=== PATIENT | male | born 1960 | race Caucasian/White ===

== ENCOUNTER 2017-08-07 22:36 | Emergency (ER) | payer MEDICARE, MEDICAID ==
[2017-08-08] MEDS ORDERED: Tetan/Diph/Pertus SYR(Tdap)* 0.5 ML SYR(BOOSTRIX) use SYR IM ONE (02:06)
[2017-08-08] MEDS ORDERED: Lidocaine 1%* 5 ML VIAL ONE (02:38)
[2017-08-08 03:03] VITALS: BP 142/88
--- NOTE | 2017-08-08 07:50 | RAD ---
HISTORY: Fall, left hand injury COMPARISONS: None VIEWS: 4, Frontal, lateral, and oblique views of the left hand FINDINGS: BONE DENSITY: Normal. BONES: There is no displaced fracture. 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 ALIGNMENT: There is no dislocation. SOFT TISSUES: There is soft tissue irregularity of the distal fourth digit consistent with the history of laceration. OTHER FINDINGS: None. IMPRESSION: NO ACUTE OSSEOUS INJURY. IF SYMPTOMS PERSIST, RECOMMEND REPEAT IMAGING.
--- NOTE | 2017-08-20 01:39 | ED ---
Eulalio Molina Angela, scribed for Jaquan Hernandez MD on 08/08/17 at 0213 . Laceration/Wound HPI - HPI Summary HPI Summary: This pt is a 57 y/o male presenting to [facility] [place]/o left fourth finger laceration s /p fall today. Pt reports he was coughing when he passed out and fell. Pt states he fell on the garage floor with gravel and sustained a laceration. Pt denies head injury, headache, or any other injuries. Pt notes he has had prior episodes of cough syncope. PMHx includes emphysema. - History of Current Complaint Stated Complaint: LT FINGER LAC Time Seen by Provider: 08/08/17 02:04 Hx Obtained From: Patient Onset/Duration: Lasting Hours, Still Present Timing: Constant Current Severity: Mild Pain Intensity: 1 Pain Scale Used: 0-10 Numeric Associated Signs & Symptoms: Negative - Allergy/Home Medications Allergies/Adverse Reactions: Allergies Allergy/AdvReac Type Severity Reaction Status Date / Time No Known Allergies Allergy Verified 02/11/13 17:17 PMH/Surg Hx/FS Hx/Imm Hx Endocrine/Hematology History: Denies: Hx Diabetes Cardiovascular History: Reports: Hx Hypertension Respiratory History: Reports: Hx Chronic Obstructive Pulmonary Disease (COPD) - emphysema Neurological History: Reports: Other Neuro Impairments/Disorders - cough syncope - Immunization History Date of Tetanus Vaccine: unk Infectious Disease History: No Infectious Disease History: Denies: Traveled Outside the [place] in Last 30 Days - Family History Known Family History: Positive: Unknown - pt is adopted. - Social History Alcohol Use: Weekly Substance Use Type: Reports: None Smoking Status (MU): Unknown if Ever Smoked Review of Systems Negative: Fever, Chills Positive: Cough Skin: Other - laceration to left fourth finger Positive: Syncope - passing out All Other Systems Reviewed And Are Negative: Yes Physical Exam - Summary Physical Exam Summary: Appearance: Well-appearing, Well-nourished Skin: Warm, Dry, No rash Eyes: Normal, PERRL, EOMI, sclera anicteric ENT: Normal Neck: Supple, nontender Respiratory: Clear to auscultation Cardiovascular: S1, S2, no murmur, no rub, no gallop Abdomen: Soft, nontender, no organomegaly Bowel sounds: Present Musculoskeletal: Normal, Strength/ROM Intact, no edema, pulses symmetrical. LUE : laceration on left fourth finger distal phalanx. Full extension and flexion of the finger. Finger is well perfused and sensation is normal. Neurological: Normal, A&Ox3, cranial nerves II-XII wnl, follows commands, gait not tested, sensation intact to pin and light touch Psychiatric: affect normal, behavior appropriate, dressed appropriately, judgment intact Triage Information Reviewed: Yes Vital Signs On Initial Exam: Initial Vitals Temp Pulse Resp BP Pulse Ox 98.2 F 92 16 131/88 100 08/07/17 22:38 08/07/17 22:38 08/07/17 22:38 08/07/17 22:38 08/07/17 22:38 Vital Signs Reviewed: Yes Procedures - Laceration/Wound Repair 1 Location: upper extremity - left fourth finger Description: Linear Anesthesia: 1.0%, Lido Laceration/Wound Explored: clean Suture Type: Other - surgipro 4-0 Number of Sutures: 5 Diagnostics - Vital Signs Vital Signs Temp Pulse Resp BP Pulse Ox 08/08/17 00:46 98.6 F 90 16 142/86 98 08/07/17 22:38 98.2 F 92 16 131/88 100 - Laboratory Lab Statement: Any lab studies that have been ordered have been reviewed, and results considered in the medical decision making process. - Radiology Left hand XR Xray Interpretation: No Acute Changes - Negative for fractures Radiology Interpretation Completed By: ED Physician Laceration Repair Course/Dx - Course Assessment/Plan: Pt is a 57 y/o male who presents with left fourth finger laceration s/p cough syncope. XR of finger is negative for fractures. Pt declines an EKG. I placed 5 sutures with 4-0 surgipro. Pt tolerated well. He will be discharged home. - Clinical Impression Provider Diagnoses: Cough syncope, Laceration Discharge - Discharge Plan Condition: Good Disposition: HOME Patient Education Materials: Laceration (ED) Referrals: Jose Cerda MD [Primary Care Provider] - The documentation as recorded by the Eulalio welch Angela accurately reflects the service I personally performed and the decisions made by me, Jaquan Hernandez MD.
== END 2017-08-08 03:03 | disposition home or self-care (01) ==
LOC: ED 22:36
DX: S61.215A Laceration without foreign body of left ring finger without damage to nail, initial encounter (principal); R05 Cough; R55 Syncope and collapse; W19.XXXA Unspecified fall, initial encounter; Y93.9 Activity, unspecified; Y92.9 Unspecified place or not applicable
CPT/HCPCS: 90471; 90715; 99282

== ENCOUNTER 2019-12-04 18:27 | Emergency (ER) | payer MEDICARE, MEDICAID ==
[2019-12-04] MEDS ORDERED: NS 0.9% 1000 ML** 1,000 ML IV ONE ×2 (18:29→18:55)
--- NOTE | 2019-12-04 18:37 | ED ---
Neurological HPI - HPI Summary HPI Summary: 59 year old M with hx HTN and hx alcohol use arriving via [facility] to [facility] from daughter's house presents with aphasia and right sided weakness. Last known well 1734. Son states patient was sitting on the couch when son noticed that patient had difficulty talking and right sided facial droop. Son called EMS. EMS states patient was able to walk down stairs before they showed up. Patient regained some speech ability and strength but still aphasic and weak on his right side. Patient normally speaks with some slur per EMS. Medications reviewed. Not on anticoagulants. EMS states patient is noncompliant with his medications. Malcolm Tovar called in the field by EMS 1817. Patient arrival to ED 1826. Initial provider encounter 1826. Patient to CT 1828. - History of Current Complaint Stated Complaint: POSSIBLE CODE CORREIA Time Seen by Provider: 12/04/19 18:29 Hx Obtained From: Family/Manufacturing Inspector - son, EMS Onset/Duration: Started hours ago - 1734, Still Present Timing: Constant Aggravating: Nothing Alleviating: Nothing - Allergy/Home Medications Allergies/Adverse Reactions: Allergies Allergy/AdvReac Type Severity Reaction Status Date / Time No Known Allergies Allergy Verified 02/11/13 17:17 Home Medications: Home Medications Albuterol HFA INHALER* [Proair Hfa Inhaler*] PRN 02/11/13 [History] Ipratropium HFA INHALER(NF) [Atrovent Hfa Inhaler*] PRN 02/11/13 [History Confirmed 02/11/13] PMH/Surg Hx/FS Hx/Imm Hx Endocrine/Hematology History: Denies: Hx Diabetes Cardiovascular History: Reports: Hx Hypertension Respiratory History: Reports: Hx Chronic Obstructive Pulmonary Disease (COPD) - emphysema Neurological History: Reports: Other Neuro Impairments/Disorders - cough syncope - Surgical History Surgical History: None - Immunization History Date of Tetanus Vaccine: unk - Family History Known Family History: Positive: Unknown - patient is adopted - Social History Alcohol Use: Weekly Substance Use Type: Reports: None Smoking Status (MU): Unknown if Ever Smoked Review of Systems Positive: Other - hypertension Neurological/Mental Status: Other - aphasia, right sided facial droop Positive: Weakness - R side All Other Systems Reviewed And Are Negative: Yes Physical Exam - Summary Physical Exam Summary: Constitutional: Well-developed, Well-nourished, Alert. (-) Distressed Skin: Warm, Dry HENT: Normocephalic; Atraumatic Eyes: Conjunctiva normal Neck: Musculoskeletal ROM normal neck. (-) JVD, (-) Stridor, (-) Tracheal deviation Cardio: Rhythm regular, rate normal, Heart sounds normal; Intact distal pulses; The pedal pulses are 2+ and symmetric. Radial pulses are 2+ and symmetric. (-) Murmur Pulmonary/Chest wall: Effort normal. (-) Respiratory distress, (-) Wheezes, (-) Rales Abd: Soft. (-) Tenderness, (-) Distension, (-) Guarding, (-) Rebound Musculoskeletal: (-) Edema Lymph: (-) Cervical adenopathy Neuro: Patient is aphasic. He is following commands. He is moving all extremities. Psych: Mood and affect Normal Triage Information Reviewed: Yes Vital Signs Reviewed: Yes - [place] Coma Scale Best Eye Response: 4 - Spontaneous Best Motor Response: 6 - Obeys Commands Best Verbal Response: 2 - Incomprehensible Words Coma Scale Total: 12 Procedures - Sedation Patient Received Moderate/Deep Sedation with Procedure: No Diagnostics - Laboratory Result Diagrams: 12/04/19 18:41 12/04/19 18:41 Lab Statement: Any lab studies that have been ordered have been reviewed, and results considered in the medical decision making process. - Radiology CXR Radiology Interpretation Completed By: ED Physician - ? mild pulmonary edema. otherwise NAD. PENDING OFFICIAL REPORT. - CT BRAIN CT Interpretation Completed By: Radiologist - IMPRESSION: 1. Significant limitation by motion artifact. This could obscure early evidence for infarction or small bleed. No definite intracranial hemorrhage, mass, or mass effect. However if symptoms persist repeat or close follow-up study would be recommended. 2. There is minimal low attenuation change in the white matter most consistent with chronic age related small vessel ischemic change. No acute territorial infarction is seen. These can be initially occult on head CT. 3. ASPECTS score 10, given the limitations. ED physician has reviewed this imaging report. - EKG 1842 Cardiac Rate: NL - 74 BPM EKG Rhythm: Sinus Rhythm Summary of EKG Findings: No ischemic changes. ED physician has reviewed and interpreted this EKG NIH Scale - NIH Scale Level of Consciousness: Alert/Keenly Responsive Ask Patient the Month and His/Her Age: Neither Correct/Aphasic Ask Pt to Open/Close Eyes and Night Clerk Auditor/Release Non-Paretic Hand: Both Correctly Best Gaze (Only Horizontal Eye Movement): Normal Visual Field Testing: No Visual Loss Facial Paresis-Pt to Smile & Close Eyes or Grimace Symmetry: Minor Paralysis Motor Function - Right Arm: Drifts LT 10 seconds Motor Function - Left Arm: No Drift-Holds 10 Seconds Motor Function - Right Leg: Drifts LT 10 seconds Motor Function - Left Leg: No Drift-Holds 10 Seconds Limb Ataxia-Must be out of Proportion to Weakness Present: Absent Sensory (Use Pinprick to Test Arms/Legs/Trunk/Face): Normal Best Language (Describe Picture, Name Items): Severe Aphasia Dysarthria (Read Several Words): Unintelligible or Mute Extinction and Inattention: No Abnormality Total Score: 9 Re-Evaluation - Re-Evaluation First Eval Re-Evaluation Time: 18:40 Comment: report given to [facility] Second Eval Re-Evaluation Time: 18:46 Comment: gave report to Dr. Foster, [place] neurologist Third Eval Re-Evaluation Time: 18:53 Comment: Dr. Olson called to report negative CT Brain findings Fourth Eval Re-Evaluation Time: 18:54 Comment: [facility] called to report negative CT Brain findings Fifth Eval Re-Evaluation Time: 18:56 Comment: called Dr. Foster and updated him on additional history and course of treatment Sixth + Eval Re-Evaluation Time: 19:24 Comment: aware of troponin 0.03 Seventh Eval Re-Evaluation Time: 19:40 Comment: patient accepted to Dr. Foster per Dr. Rievrs Course/Dx - Course Course Of Treatment: 59 y/o M with hx HTN and hx alcohol use p/w aphasia and right sided weakness. Last known well 1734. Son noted patient to have difficulty talking and right sided facial droop while patient was sitting on the couch. Medications reviewed. Not on anticoagulants. Patient is noncompliant with his medications. Upon physical exam, patient is aphasic. He is following commands. He is moving all extremities. Bloodwork results with no significant abnormalities except for INR 1.24, sodium 129, chloride 94, troponin 0.03, BNP 117. An EKG shows NSR 74 BPM and no ischemic changes. CXR shows ? mild pulmonary edema, otherwise NAD. BRAIN CT shows Significant limitation by motion artifact. This could obscure early evidence for infarction or small bleed. No definite intracranial hemorrhage, mass, or mass effect. However if symptoms persist repeat or close follow-up study would be recommended. 2. There is minimal low attenuation change in the white matter most consistent with chronic age related small vessel ischemic change. No acute territorial infarction is seen. These can be initially occult on head CT. 3. ASPECTS score 10, given the limitations. Patient is hypertensive. He was started on Cardene trip. Dr. Rivers agreed to consult and see patient in the ED. He recommended TPA. TPA was mixed. Activase ordered and administered at 1915. Dr. Rivers discussed the risks and benefits of TPA with patient and family. Head/Neck CTA obtained. Official read pending at time of patient departure. Dr. Rivers recommends transfer. The patient was accepted to Dr. Foster at [place] per Dr. Rivers at 1940. The patient will be transferred to [place]. - Diagnoses Provider Diagnoses: CVA (cerebral vascular accident), Uncontrolled hypertension, Elevated troponin , Hyponatremia During the Visit The Following Alert/Code Occurred: Code Tovar - 1818 called in the field by EMS - Physician Notifications Discussed Care Of Patient With: Erick Rivers - he agrees to consult and recommends TPA Time Discussed With Above Provider: 18:58 - Critical Care Time Critical Care Time: 75-104 min Discharge ED - Sign-Out/Discharge Documenting (check all that apply): Patient Departure - Discharge Plan Condition: Stable Disposition: TRANS HIGHER LVL OF CARE FAC Referrals: Jose Cerda MD [Primary Care Provider] - - Billing Disposition and Condition Condition: STABLE Disposition: Trans Higher Lvl of Care Fac - Attestation Statements Document Initiated by Scribe: Yes Documenting Scribe: Bobbi Torres Provider For Whom Kaelaibe is Documenting (Include Credential): London Brock DO Scribe Attestation: Bobbi Molina scribed for London Brock DO on 12/04/19 at 1999. Scribe Documentation Reviewed: Yes Provider Attestation: The documentation as recorded by the Bobbi welch accurately reflects the service I personally performed and the decisions made by , London Brock DO Status of Scribe Document: Viewed
[2019-12-04] MEDS ORDERED: niCARdipine 0.1MG/ML IVPREMIX* 20 MG/200 ML BAG IV SCH (19:00)
[2019-12-04] MEDS ORDERED: Alteplase* 100 MG VIAL ONE (19:00)
[2019-12-04] MEDS ORDERED: niCARdipine 0.1MG/ML IVPREMIX* 20 MG/200 ML BAG IV ONE ×2 (19:00→19:02)
[2019-12-04 19:04] LABS: ABS Basophils 0.1 10^3/ul (0-0.2); ABS Lymphocytes 2.4 10^3/ul (1.0-4.8); ABS Monocytes 0.9 10^3/ul (0-0.8); ABS Neutrophils 5.4 10^3/ul (1.5-7.7); Eosinophil % 0.5 %; Hematocrit 44 % (42-52); Hemoglobin 15.2 g/dL (14.0-18.0); Lymphocyte % 27.1 %; Mean Corpuscular HGB Conc 35 g/dL (31-36); Mean Corpuscular Hemoglobin 33 pg (27-31); Mean Corpuscular Volume 95 fL (80-94); Mean Platelet Volume 8.6 fL (7.4-10.4); Platelet Count 279 10^3/uL (150-450); Red Cell Distribution Width 13 % (10-15); White Blood Count 8.8 10^3/uL (3.5-10.8)
[2019-12-04 19:15] LABS: Activated Partial Thrombo Time 37.8 seconds (26.0-38.0); INR 1.24 (0.82-1.09)
[2019-12-04] MEDS ORDERED: ALTEPLASE IV ONE (19:15)
[2019-12-04 19:20] LABS: ALT 15 U/L (7-52); Albumin 3.7 g/dL (3.2-5.2); Albumin/Globulin Ratio 0.9 (1-3); Alkaline Phosphatase 79 U/L (34-104); BUN/Creatinine Ratio 10.5 (8-20); Blood Urea Nitrogen 9 mg/dL (6-24); CO2 Carbon Dioxide 26 mmol/L (22-32); Calcium 9.2 mg/dL (8.6-10.3); Chloride 94 mmol/L (101-111); Cholesterol 150 mg/dL; EGFR African American 110.1 (>60); Globulin 3.9 g/dL (2-4); Glucose 112 mg/dL (70-100); HDL Cholesterol 52.3 mg/dL; LDL Cholesterol 80 mg/dL; Sodium 129 mmol/L (135-145); Total Protein 7.6 g/dL (6.4-8.9); Triglycerides 89 mg/dL
[2019-12-04] MEDS ORDERED: Alteplase* 100 MG VIAL IV ONE (19:20)
[2019-12-04 19:24] LABS: Troponin I 0.03 ng/mL (<0.03)
[2019-12-04 19:52] VITALS: BP 172/82
[2019-12-04 20:01] LABS: AST 21 U/L (13-39); Anion Gap 9 mmol/L (2-11); Potassium 3.9 mmol/L (3.5-5.0)
[2019-12-04] MEDS ORDERED: Midazolam* 1 MG/ML 5 ML VIAL (5 MG) IV SLOW PU ONE (20:11)
--- NOTE | 2019-12-04 22:57 | CONS ---
CONSULTATION REPORT: DATE OF CONSULT: 12/04/19 - EMERGENCY DEPT CONSULTING PROVIDER: Dr. London Brock. REASON FOR CONSULT: Stroke. CHIEF COMPLAINT: Word-finding difficulty and right hemiparesis. HISTORY OF PRESENT ILLNESS: Mr. Terrance Louis is a 59-year-old right-handed man with history of uncontrolled hypertension, poor compliance to medications, dyslipidemia, tobacco use, who presented to [facility] today, on 04/17, due to sudden onset word-finding difficulty and right-sided weakness. The patient was last seen well on 12/04/19 at 1700. He was sitting on the couch at his daughter's house watching television. Suddenly at 1735, on , the patient developed word-finding difficulty. He could not formulate words. He had associated symptoms of inability to move the right side of his body. The family rushed him to the ER for further evaluation. I was involved because I was on my way to see a consultation in room 19, when suddenly I have noticed that the patient in room 14 with profound right hemiparesis, right neglect, aphasia, and pending [facility] consultation. I had offered to consult on the patient immediately to provide him with tPA at a timely manner. Dr. Jun Brock agreed that I would consult on the patient. I was at bedside at 33 minutes from when the patient walked into the door. The Code Justin was activated at 1816 on 12/04/19. I was at bedside at 1849 p.m. TPA decision time at 1855 after I briefly examined the patient, performed NIH Stroke Scale, and reviewed the CT head. The CT head showed no evidence of acute intracranial abnormality. There was hypodensity in the right basal ganglia area, which appeared slightly chronic. There was an area of hyperdensity in the cavernous portion of the internal carotid artery extending into the proximal middle cerebral artery. We delayed IV tPA because the patient's blood pressure was significantly elevated. We started him on nicardipine drip and was able to drop his blood pressure within about 10 to 15 minutes. The patient received IV tPA infusion at 1920. A CTA head and neck was then obtained for which it was not obtained initially and showed severe stenosis of the left MCA with a possible cut off. There is calcification in the left internal carotid artery near the bulb without any clear occlusion there. 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 I discussed the findings with Dr. Foster from the [facility] and have decided to activate the LVO code and bring the air flight team to transfer the patient to the [facility]. Prior to give an IV tPA, I have discussed the risks, benefits, and alternative treatment with the family including the patient's spouse and children, who were at bedside. They all agreed to proceed with IV tPA including the patient's daughter, Sabi Louis. NIH Stroke Scale 12 for severe aphasia, right facial droop, right hemiparesis graded as 1, and one limb ataxia and tactile extinction. PAST MEDICAL HISTORY: Obesity, hypertension, tobacco abuse for over 30 years, 1 pack per day. FAMILY HISTORY: No family history of stroke or seizures. SOCIAL HISTORY: Smoker. The patient also drinks heavily, averaging 3-4 beers a day. REVIEW OF SYSTEMS: Review of systems was unable to be obtained due to the patient's aphasia. PHYSICAL EXAM: Vitals: Temperature of 99.1, heart rate of 99, respiratory rate of 28, oxygen saturation of 94%, blood pressure of 172/82. General: Ill- appearing man, in no acute distress. He is aphasic. Head: Atraumatic, normocephalic without any obvious abnormality. Neck is supple and symmetrical with no carotid bruits. Eyes: Conjunctivae/corneas are clear. Pulmonary: Clear to auscultation bilaterally. Cardiac: Regular rate and rhythm with normal S1, S2. Extremities: Normal range of motion with no cyanosis or edema. Skin: No skin lesions or laceration. Psych: Nonapplicable. Mental Status: Alert, awake, and responds appropriately, but severely aphasic. He comprehends well, but is nearly mute. Speech is slurred. Cranial Nerves: Pupils are equal , round, and reactive to light. Extraocular muscles are intact, but there is forced deviation towards the left side that does overcome towards the right facial droop. Tongue is symmetric and midline. There is no atrophy. Motor Examination: 4/5 weakness on the right upper and lower extremity, 5/5 in the left upper and lower extremity. Normal tone throughout. Sensation is diminished on the right arm and leg. Coordination: Motor dysmetria on the right [id number]. Gait was not assessed. DIAGNOSTIC STUDIES/LAB DATA: WBC of 8.8, hemoglobin of 15.2, hematocrit 44, platelet count of 279. INR 1.24. Sodium of 129, potassium is 3.9, chloride of 94, glucose of 112. BNP of 117. Serum alcohol less than 10. Please note the final CTA results have not been read. ASSESSMENT AND RECOMMENDATIONS: Mr. Terrance Louis is a 59-year-old man, who has history of obesity, uncontrolled hypertension, tobacco abuse, alcohol dependency, who presented to [facility] with right hemiparesis and aphasia. Again, the [facility] was consulted on the case; however , I had incidentally passed by and found that the patient was having right hemiparesis with aphasia and we were waiting for the Telestroke to come on and therefore I was asked by Dr. Brock to evaluate the patient. 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 Inclusion and exclusion to IV tPA was reviewed with the patient's son and daughter at bedside. We found that he had no exclusions to IV alteplase therapy and decided with consent of family to proceed with IV tPA. The risk of hemorrhage which includes 6% and risk of includes about 3% were discussed in detail with all family members, who agreed to proceed with the procedure. Before given the tPA, we had complications with hypertensive emergency and had to lower the blood pressure with nicardipine drip. This was accomplished within approximately 15 minutes. The patient received IV tPA and the air flight team was activated and he is in the process of leaving the facility to go to the [facility]. Please keep close monitoring for his blood pressure, especially that he has received IV tPA. Please monitor for any seizures. The patient was slightly agitated before getting into the stretcher to head over to the helicopter and therefore we gave him a small dose of Versed 2 mg. I discussed these findings with Dr. Brock, who agreed with the recommendations. Please contact me for any questions or concerns. [id number]/[facility] #: [id number] NINFA
[2019-12-05] MEDS ORDERED: Iohexol 350* (CONTRAST) 500 ML MDV IV ONE (22:03)
== END 2019-12-04 20:31 | disposition short-term general hospital (02) ==
LOC: ED 18:27
DX: I63.231 Cerebral infarction due to unspecified occlusion or stenosis of right carotid arteries (principal); I63.512 Cerebral infarction due to unspecified occlusion or stenosis of left middle cerebral artery; R47.01 Aphasia; R29.810 Facial weakness; G81.91 Hemiplegia, unspecified affecting right dominant side; I10 Essential (primary) hypertension; R29.712 NIHSS score 12; R79.89 Other specified abnormal findings of blood chemistry; E87.1 Hypo-osmolality and hyponatremia; J43.9 Emphysema, unspecified; Z79.51 Long term (current) use of inhaled steroids; Z91.14 Patient's other noncompliance with medication regimen; F17.200 Nicotine dependence, unspecified, uncomplicated
CPT/HCPCS: 36415; 70450; 70496; 70498; 71045; 80053; 80061; 80320; 83605; 83880; 84484; 85025; 85610; 85730; 93005; 96365; 96366; 99285; G0480; J2250; J2997; Q9967